=== PATIENT | male | born 1995 | race Caucasian/White ===

== ENCOUNTER 2020-10-19 11:41 | Emergency (ER) | payer OTHER ==
--- NOTE | 2020-10-19 11:45 | EDM.PDOC ---
ED HPI GENERAL MEDICAL PROBLEM - General Stated Complaint: ABCESS Time Seen by Provider: 10/19/20 11:44 Source of Information: Reports: Patient History Limitations: Reports: No Limitations - History of Present Illness INITIAL COMMENTS - FREE TEXT/NARRATIVE: 24-year-old male no past medical history presents for concern for anal abscess. Patient first noted symptoms around 4 days ago. He notes that he has had this once before that required needle aspiration. The area of concern is in the top right part of his anus. He does note that he was constipated and initially was thinking this is a hemorrhoid but secondary to the pain and lack of bleeding he is concerned more for abscess. No systemic symptoms. rectal Pain Score (Numeric/FACES): 4 - Related Data Allergies Allergy/AdvReac Type Severity Reaction Status Date / Time No Known Allergies Allergy Verified 10/19/20 11:55 Home Meds: Home Meds Sulfamethoxazole/Trimethoprim [Bactrim Ds Tablet] 1 each PO BID #14 tablet 10/19/20 [Rx] ED ROS GENERAL - Review of Systems Review Of Systems: Comprehensive ROS is negative, except as noted in HPI. ED EXAM, GENERAL - Physical Exam Exam: See Below Exam Limited By: No Limitations General Appearance: Alert, WD/WN, No Apparent Distress Throat/Mouth: Normal Voice, No Airway Compromise Head: Atraumatic, Normocephalic Neck: Normal Inspection Respiratory/Chest: No Respiratory Distress, No Accessory Muscle Use Cardiovascular: Normal Peripheral Pulses, Regular Rate, Rhythm (Male) Exam: Other (small pimple like bump at top right part of anus consistent with small abscess, does not appear to be a hemorrhoid) Extremities: Normal Inspection Neurological: Alert Psychiatric: Normal Affect, Normal Mood Skin Exam: Warm, Dry, Intact, Normal Color ED I&D PROCEDURES - I&D Site: anus Skin prep: Isopropyl Alcohol (Alcohol) Local anesthesia - Lidocaine (Xylocaine): 1% with EPI Local Anesthetic Volume: 3cc Area Incised With: Needle Drainage: Small Amount, Other (serosanguanous ) Probed to Break Up Loculations: Yes Packed With: None Complications: No Course - Vital Signs Last Recorded V/S: Last Vital Signs Temp 96.8 F L 10/19/20 11:55 Pulse 111 H 10/19/20 11:55 Resp 18 10/19/20 11:55 BP 126/71 10/19/20 11:55 Pulse Ox 95 10/19/20 11:55 - Orders/Labs/Meds Meds: Medications Discontinued Medications Generic Name Dose Route Start Last Admin Trade Name Fco PRN Reason Stop Dose Admin Lidocaine/Epinephrine 20 ml 10/19/20 12:13 10/19/20 12:22 Lidocaine 1% With Epinephrine 1:100,000 20 Ml Mdv INJECT 10/19/20 12:14 20 ml ONETIME ONE Administration - Re-Assessments/Exams Free Text/Narrative Re-Assessment/Exam: 10/19/20 12:11 Will needle aspirate; area is not big enough to I&D. Will d/c with bactrim to reduce risk of recurrence. Will recommend gen-surg f/u. Departure - Departure Time of Disposition: 12:31 Disposition: Home, Self-Care 01 Condition: Good Clinical Impression: Perianal abscess - Discharge Information Prescriptions: Sulfamethoxazole/Trimethoprim [Bactrim Ds Tablet] 1 each PO BID #14 tablet Referrals: PCP,None [Primary Care Provider] - Additional Instructions: The following information is given to patients seen in the emergency department who are being discharged to home. This information is to outline your options for follow-up care. We provide all patients seen in our emergency department with a follow-up referral. The need for follow-up, as well as the timing and circumstances, are variable depending upon the specifics of your emergency department visit. If you don't have a primary care physician on staff, we will provide you with a referral. We always advise you to contact your personal physician following an emergency department visit to inform them of the circumstance of the visit and for follow-up with them and/or the need for any referrals to a consulting specialist. The emergency department will also refer you to a specialist when appropriate. This referral assures that you have the opportunity for follow-up care with a specialist. All of these measure are taken in an effort to provide you with optimal care, which includes your follow-up. Under all circumstances we always encourage you to contact your private physician who remains a resource for coordinating your care. When calling for follow-up care, please make the office aware that this follow-up is from your recent emergency room visit. If for any reason you are refused follow-up, please contact the [facility] Emergency Department at and asked to speak to the emergency department charge nurse. Please follow up with your primary care physician. If you do not have a primary care physician, see below: [facility] [address] [place] [id number] [facility] [address] [place] [address] [facility] [address], [place] [address] Sepsis Event Note (ED) - Focused Exam Vital Signs: Vital Signs Temp Pulse Resp BP Pulse Ox 10/19/20 11:55 96.8 F L 111 H 18 126/71 95
[2020-10-19] MEDS ORDERED: Lidocaine 1% with EPINEPHrine 1:100,000 20 ML MDV INJECT ONE (12:13)
== END 2020-10-19 12:44 | disposition home or self-care (01) ==
LOC: MW.ED 11:41
DX: K61.0 Anal abscess (principal)
CPT/HCPCS: 56405; 99282-25

== ENCOUNTER 2020-10-20 21:21 | Emergency (ER) | payer OTHER ==
[2020-10-20] MEDS ORDERED: Lidocaine 2% 5 ML SDV INJECT ONE (22:00)
--- NOTE | 2020-10-20 22:04 | EDM.PDOC ---
ED HPI GENERAL MEDICAL PROBLEM - General Chief Complaint: Skin Complaint Stated Complaint: ABCESS Time Seen by Provider: 10/20/20 21:34 Source of Information: Reports: Patient History Limitations: Reports: No Limitations - History of Present Illness INITIAL COMMENTS - FREE TEXT/NARRATIVE: Patient is a 24-year-old male who presents today for anal abscess. Patient was seen here yesterday and a needle decompression was done in a different area but now he has abscess above is well. Patient was also started on antibiotics yesterday day 2 started. Patient denies any fever chills nausea vomiting or other complaints. anus Pain Score (Numeric/FACES): 4 - Related Data Allergies Allergy/AdvReac Type Severity Reaction Status Date / Time No Known Allergies Allergy Verified 10/20/20 21:58 Home Meds: Home Meds Sulfamethoxazole/Trimethoprim [Bactrim Ds Tablet] 1 each PO BID #14 tablet 10/19/20 [Rx] Past Medical History HEENT History: Reports: None Cardiovascular History: Reports: None Respiratory History: Reports: None Gastrointestinal History: Reports: None Genitourinary History: Reports: None Musculoskeletal History: Reports: None Neurological History: Reports: None Psychiatric History: Reports: None Endocrine/Metabolic History: Reports: None Hematologic History: Reports: None Immunologic History: Reports: None Oncologic (Cancer) History: Reports: None Dermatologic History: Reports: Other (See Below) Other Dermatologic History: abcess - Infectious Disease History Infectious Disease History: Reports: None - Past Surgical History Head Surgeries/Procedures: Reports: None HEENT Surgical History: Reports: None Cardiovascular Surgical History: Reports: None Respiratory Surgical History: Reports: None GI Surgical History: Reports: None Male Surgical History: Reports: Other (See Below) Other Male Surgeries/Procedures: hydrocellectomy Endocrine Surgical History: Reports: None Neurological Surgical History: Reports: None Musculoskeletal Surgical History: Reports: None Oncologic Surgical History: Reports: None Dermatological Surgical History: Reports: None Social & Family History - Family History Family Medical History: No Pertinent Family History - Caffeine Use Caffeine Use: Reports: None ED ROS GENERAL - Review of Systems Review Of Systems: See Below Constitutional: Reports: No Symptoms HEENT: Reports: No Symptoms Respiratory: Reports: No Symptoms Cardiovascular: Reports: No Symptoms Endocrine: Reports: No Symptoms GI/Abdominal: Reports: No Symptoms : Reports: No Symptoms Musculoskeletal: Reports: No Symptoms Skin: Reports: No Symptoms Neurological: Reports: No Symptoms Psychiatric: Reports: No Symptoms Hematologic/Lymphatic: Reports: No Symptoms Immunologic: Reports: No Symptoms ED EXAM, GENERAL - Physical Exam Exam: See Below Exam Limited By: No Limitations General Appearance: Alert, WD/WN, No Apparent Distress Respiratory/Chest: No Respiratory Distress, Lungs Clear Cardiovascular: Normal Peripheral Pulses, Regular Rate, Rhythm GI/Abdominal: Normal Bowel Sounds Rectal (Males) Exam: Perirectal Abscess Neurological: Alert, Oriented ED I&D PROCEDURES - I&D Site: rectal Skin prep: Providone-Iodine (Betadine) Local anesthesia - Lidocaine (Xylocaine): 1% Plain Local Anesthetic Volume: 2cc Area Incised With: 11 Blade Drainage: Purulent Probed to Break Up Loculations: Yes Packed With: None Sterile Dressing: Adhesive Dressing Complications: No Course - Vital Signs Last Recorded V/S: Last Vital Signs Temp 97.4 F 10/20/20 21:30 Pulse 103 H 10/20/20 21:30 Resp 18 10/20/20 21:30 BP 135/81 10/20/20 21:30 Pulse Ox 95 10/20/20 21:30 - Orders/Labs/Meds Meds: Medications Discontinued Medications Generic Name Dose Route Start Last Admin Trade Name Fco PRN Reason Stop Dose Admin Lidocaine 5 ml 10/20/20 22:00 10/20/20 22:21 Lidocaine 2% 5 Ml Sdv INJECT 10/20/20 22:01 Not Given ONETIME ONE Lidocaine HCl Confirm 10/20/20 22:15 10/20/20 22:21 Lidocaine 1% 5 Ml Sdv Administered 10/20/20 22:16 Not Given Dose 5 ml .ROUTE .STK-MED ONE Lidocaine HCl 5 ml 10/20/20 22:20 10/20/20 22:22 Lidocaine 1% 5 Ml Sdv INJECT 10/20/20 22:21 5 ml ONETIME ONE Administration - Re-Assessments/Exams Free Text/Narrative Re-Assessment/Exam: 10/20/20 23:01 We I&D the abscess on good amount of pus came out. This was a different spot that was needle decompressed yesterday. We we will have patient continue to current antibiotics and given strict return precautions. Departure - Departure Time of Disposition: 23:02 Disposition: Home, Self-Care 01 Condition: Good Clinical Impression: Yolanda-rectal abscess - Discharge Information *PRESCRIPTION DRUG MONITORING PROGRAM REVIEWED*: Not Applicable *COPY OF PRESCRIPTION DRUG MONITORING REPORT IN PATIENT SHRUTI: Not Applicable Instructions: Anorectal Abscess Referrals: PCP,None [Primary Care Provider] - Forms: ED Department Discharge Additional Instructions: The following information is given to patients seen in the emergency department who are being discharged to home. This information is to outline your options for follow-up care. We provide all patients seen in our emergency department with a follow-up referral. The need for follow-up, as well as the timing and circumstances, are variable depending upon the specifics of your emergency department visit. If you don't have a primary care physician on staff, we will provide you with a referral. We always advise you to contact your personal physician following an emergency department visit to inform them of the circumstance of the visit and for follow-up with them and/or the need for any referrals to a consulting specialist. The emergency department will also refer you to a specialist when appropriate. This referral assures that you have the opportunity for follow-up care with a specialist. All of these measure are taken in an effort to provide you with optimal care, which includes your follow-up. Under all circumstances we always encourage you to contact your private physician who remains a resource for coordinating your care. When calling for follow-up care, please make the office aware that this follow-up is from your recent emergency room visit. If for any reason you are refused follow-up, please contact the [facility] Emergency Department at and asked to speak to the emergency department charge nurse. Please follow up with your primary care physician. If you do not have a primary care physician, see below: [facility] [address] [place] [id number] [facility] [address] [place] [phone] You are seen today for abscess to the rectal area. We were able to drain some of the fluid out with abscess with 11 blade. We recommend you continue your c urrent antibiotics you are on right now. The area continues to be painful or swells up in size please return to ED immediately otherwise follow with your primary care physician. Sepsis Event Note (ED) - Focused Exam Vital Signs: Vital Signs Temp Pulse Resp BP Pulse Ox 10/20/20 21:30 97.4 F 103 H 18 135/81 95 - Assessment/Plan Plan: Patient is a 24-year-old male who presents today for possible rectal abscess. Patient had a needle compression yesterday but this area is in a different location is bigger and more painful. Will attempt to do her IUD and patient will continue antibiotics.
== END 2020-10-20 23:15 | disposition home or self-care (01) ==
LOC: MW.ED 21:21
DX: K61.1 Rectal abscess (principal)
CPT/HCPCS: 10060; 46040; 99282; 99283-25